=== PATIENT | female | born 1990 | race Caucasian/White ===

== ENCOUNTER 2018-02-07 21:03 | Emergency (ER) | payer MEDICAID ==
[~2018-02-07] VITALS: Ht 152.4 cm; Wt 48.6 kg
[2018-02-07] MEDS ORDERED: FEXO-58 PO (21:15)
[2018-02-07 23:15] VITALS: BP 120/67
== END 2018-02-07 23:47 | disposition home or self-care (01) ==
LOC: EMS 21:04
DX: S63.591A Other specified sprain of right wrist, initial encounter (principal); F17.290 Nicotine dependence, other tobacco product, uncomplicated; Z79.899 Other long term (current) drug therapy; F12.90 Cannabis use, unspecified, uncomplicated; W18.39XA Other fall on same level, initial encounter; Y93.89 Activity, other specified; Y92.89 Other specified places as the place of occurrence of the external cause; Y99.8 Other external cause status
CPT/HCPCS: 99284